=== PATIENT | female | born 1945 | race African-American/Black ===

== ENCOUNTER 2018-10-05 12:23 | Emergency (ER) | payer MEDICARE, MEDICAID ==
[~2018-10-05] VITALS: Ht 157.5 cm; Wt 67.3 kg
[~2018-10-05 12:23] MED LIST: ASPI-1159; CYAN10009 PO; FOLI-43 PO; GLIPIZIDE PO; HYDR12.529 PO; LEVOTHYROXINE PO; NAPR-1164 PO; OMEP20CA10 PO
[2018-10-05 13:03] VITALS: BP 143/70
== END 2018-10-05 16:35 | disposition left against medical advice (07) ==
LOC: ER 12:23
DX: Z53.21 Procedure and treatment not carried out due to patient leaving prior to being seen by health care provider (principal)